=== PATIENT | female | born 1990 | race Caucasian/White ===

== ENCOUNTER 2024-01-02 07:23 | Emergency (ER) | payer BC ==
[2024-01-02] MEDS ORDERED: Magnesium Sulfate (4.06 MEQ/ML) 5 GM/10 ML SDV IV ONE (08:00)
[2024-01-02] MEDS: Ondansetron 4 MG/2 ML SDV IVPUSH ONE (08:13)
[2024-01-02] MEDS: Sodium Chloride 0.9% 1,000 ML IV ONE (08:13)
[2024-01-02] MEDS: Caffeine Citrated (ORAL SOLUTION) 60 MG/3 ML PO ONE (08:22)
== END 2024-01-02 09:43 | disposition home or self-care (01) ==
LOC: MW.ED 07:23
DX: G43.909 Migraine, unspecified, not intractable, without status migrainosus (principal); Z79.51 Long term (current) use of inhaled steroids; Z79.899 Other long term (current) drug therapy
CPT/HCPCS: 96365; 96375; 99283; J0706; J2405; J3475; J7030; 99284

== ENCOUNTER 2024-09-11 09:54 | Emergency (ER) | payer BC ==
[2024-09-11 10:22] LABS: BASOPHILS ABSOLUTE AUTO 0.04 K/uL (0.00-0.20); BASOPHILS PERCENT AUTO 0.3 % (0.0-1.0); EOSINOPHILS ABSOLUTE AUTO 0.05 K/uL (0.00-0.45); EOSINOPHILS PERCENT AUTO 0.3 % (0.0-6.0); HEMATOCRIT 44.9 % (37.0-47.0); HEMOGLOBIN 14.8 g/dL (12.0-16.0); IMMATURE GRAN ABSOLUTE AUTO 0.08 K/uL (0.00-0.05); IMMATURE GRAN PERCENT AUTO 0.5 % (0.0-0.4); LYMPHOCYTES PERCENT AUTO 13.3 % (24.0-44.0); MEAN CORPUSCULAR VOLUME 84.9 fL (83.0-99.0); MEAN PLATELET VOLUME 9.3 fL (9.4-12.3); MONOCYTES ABSOLUTE AUTO 0.84 K/uL (0.00-0.80); MONOCYTES PERCENT AUTO 5.3 % (0.0-8.0); NEUTROPHILS ABSOLUTE AUTO 12.65 K/uL (1.80-7.70); NEUTROPHILS PERCENT AUTO 80.3 % (41.0-71.0); PLATELET COUNT,PLT 290 K/uL (150-400); RED BLOOD CELL COUNT 5.29 M/uL (4.10-5.30); WHITE BLOOD CELL COUNT,WBC 15.76 K/uL (3.9-11.3)
[2024-09-11 10:47] LABS: A/G RATIO 1.1 (0.9-1.6); ALBUMIN 3.6 g/dL (3.4-5.0); BILIRUBIN TOTAL 0.3 mg/dL (0.2-1.0); CALCIUM 8.9 mg/dL (8.5-10.1); CARBON DIOXIDE,CO2 24.6 mmol/L (21.0-32.0); CREATININE 0.8 mg/dL (0.6-1.0); EST CRCL DRUG DOSING (CG) 102.78 mL/min; POTASSIUM,K 4.1 mmol/L (3.5-5.1); PROTEIN TOTAL,TP 6.9 g/dL (6.4-8.2)
[2024-09-11] MEDS: Ketorolac 30 MG/ML SDV IVPUSH STA (10:57)
[2024-09-11] MEDS: Ondansetron 4 MG/2 ML SDV IVPUSH STA (10:57)
[2024-09-11] MEDS: Magnesium Sulfate/Water Premix 2 GM in Premix Bag 1 BAG IV STA (10:57)
[2024-09-11] MEDS: Sodium Chloride 0.9% 1,000 ML IV STA (10:57)
[2024-09-11] MEDS: Magnesium Sulfate/Water Premix 50 ML ONE (11:08)
[2024-09-11] MEDS: Ketorolac 30 MG/ML SDV ONE (11:08)
[2024-09-11] MEDS: Ondansetron 4 MG/2 ML SDV ONE (11:08)
== END 2024-09-11 12:12 | disposition home or self-care (01) ==
LOC: MW.ED 09:54
DX: G43.909 Migraine, unspecified, not intractable, without status migrainosus (principal); J45.909 Unspecified asthma, uncomplicated; Z79.899 Other long term (current) drug therapy; Z75.8 Other problems related to medical facilities and other health care
CPT/HCPCS: 36415; 80053; 84703; 85025; 96365; 96375; 99283; J1100; J1885; J2405; J3475; J7030

== ENCOUNTER 2024-10-08 08:12 | Emergency (ER) | payer BC ==
[2024-10-08] MEDS: Sodium Chloride 0.9% 1,000 ML IV ONE (08:53)
[2024-10-08] MEDS: Ketorolac 30 MG/ML SDV IVPUSH ONE (08:54)
[2024-10-08] MEDS: Magnesium Sulf/Wat 2 GM/50 mL 2 GM in Premix Bag 1 BAG IV ONE (08:54)
[2024-10-08] MEDS: Metoclopramide 10 MG/2 ML SDV IVPUSH ONE (08:54)
== END 2024-10-08 10:58 | disposition home or self-care (01) ==
LOC: MW.ED 08:12
DX: G43.909 Migraine, unspecified, not intractable, without status migrainosus (principal); J45.909 Unspecified asthma, uncomplicated; Z88.8 Allergy status to other drugs, medicaments and biological substances; Z79.899 Other long term (current) drug therapy
CPT/HCPCS: 96365; 96366; 96375; 99283; J1100; J1885; J2765; J3475; J7030

== ENCOUNTER 2025-02-02 14:40 | Emergency (ER) | payer BC ==
[2025-02-02] MEDS ORDERED: droPERidol 2.5 MG/ML SDV IVPUSH PRN (14:55)
[2025-02-02 14:56] LABS: BASOPHILS ABSOLUTE AUTO 0.07 K/uL (0.00-0.20); BASOPHILS PERCENT AUTO 0.8 % (0.0-1.0); EOSINOPHILS ABSOLUTE AUTO 0.13 K/uL (0.00-0.45); EOSINOPHILS PERCENT AUTO 1.4 % (0.0-6.0); HEMATOCRIT 43.8 % (37.0-47.0); HEMOGLOBIN 14.7 g/dL (12.0-16.0); IMMATURE GRAN ABSOLUTE AUTO 0.05 K/uL (0.00-0.05); IMMATURE GRAN PERCENT AUTO 0.5 % (0.0-0.4); LYMPHOCYTES ABSOLUTE AUTO 2.03 K/uL (1.00-4.80); LYMPHOCYTES PERCENT AUTO 22.2 % (24.0-44.0); MEAN CORPUSCULAR HEMOGLOBIN 28.1 pg (28.0-32.0); MEAN CORPUSCULAR HGB CONC 33.6 g/dL (32.0-36.0); MEAN CORPUSCULAR VOLUME 83.6 fL (83.0-99.0); MEAN PLATELET VOLUME 8.7 fL (9.4-12.3); MONOCYTES PERCENT AUTO 5.5 % (0.0-8.0); NEUTROPHILS ABSOLUTE AUTO 6.35 K/uL (1.80-7.70); NEUTROPHILS PERCENT AUTO 69.6 % (41.0-71.0); PLATELET COUNT,PLT 322 K/uL (150-400); RED BLOOD CELL COUNT 5.24 M/uL (4.10-5.30); WHITE BLOOD CELL COUNT,WBC 9.13 K/uL (3.9-11.3)
[2025-02-02] MEDS: Acetaminophen 500 MG Tab PO ONE (14:58)
[2025-02-02] MEDS: Sodium Chloride 0.9% 1,000 ML IV ONE (14:59)
[2025-02-02 15:22] LABS: A/G RATIO 1.2 (0.9-1.6); ACETAMINOPHEN <2.0 ug/mL; ALANINE AMINOTRANSFERASE,ALT 21 IU/L (14-63); ALBUMIN 3.5 g/dL (3.4-5.0); ALKALINE PHOSPHATASE 80 U/L (46-116); ASPARTATE AMNIOTRANSFERASE,AST 12 IU/L (15-37); BILIRUBIN TOTAL 0.4 mg/dL (0.2-1.0); BLOOD UREA NITROGEN,BUN 8 mg/dL (7.0-18.0); CALCIUM 8.4 mg/dL (8.5-10.1); CARBON DIOXIDE,CO2 20.9 mmol/L (21.0-32.0); CHLORIDE,CL 105 mmol/L (98-107); CREATININE 1.2 mg/dL (0.6-1.0); EST CRCL DRUG DOSING (CG) 70.34 mL/min; ETHANOL BLOOD MEDICAL <3 mg/dL; GLUCOSE RANDOM 134 mg/dL (74-106); LIPASE 26 U/L (16-77); MAGNESIUM 2.2 mg/dL (1.8-2.4); POTASSIUM,K 3.5 mmol/L (3.5-5.1); PROTEIN TOTAL,TP 6.4 g/dL (6.4-8.2); SALICYLATE 5.2 mg/dL (0.0-20.0); SODIUM,NA 138 mmol/L (136-145)
[2025-02-02 15:29] LABS: ESTIMATED GFR 62 mL/min (>60)
[2025-02-02] MEDS: diphenhydrAMINE 50 MG/ML SDV IVPUSH ONE (15:36)
[2025-02-02] MEDS: Prochlorperazine 10 MG/2 ML SDV IVPUSH ONE (15:37)
[2025-02-02 15:48] LABS: APPEARANCE,URINE CLEAR; BILIRUBIN,URINE NEGATIVE (NEGATIVE); COLOR,URINE YELLOW; GLUCOSE,URINE NEGATIVE (NEGATIVE); KETONES,URINE NEGATIVE (NEGATIVE); LEUKOCYTE ESTERASE,URINE NEGATIVE (NEGATIVE); NITRITE,URINE NEGATIVE (NEGATIVE); OCCULT BLOOD,URINE NEGATIVE (NEGATIVE); PROTEIN,URINE NEGATIVE (NEGATIVE); UROBILINOGEN,URINE 0.2 EU/dL (<2.0)
[2025-02-02 15:58] LABS: AMPHETAMINES SCREEN, URINE PRESUMPTIVE POSITIVE (CUTOFF=500); BARBITURATE SCREEN,URINE NEGATIVE (CUTOFF=200); BENZODIAZEPINES SCREEN,URINE NEGATIVE (CUTOFF=150); BUPRENORPHINE SCREEN,URINE NEGATIVE (CUTOFF=10); METHADONE SCREEN, URINE NEGATIVE (CUTOFF=200); METHAMPHETAMINES SCREEN, URINE NEGATIVE (CUTOFF=500); OXYCODONE SCREEN,URINE NEGATIVE (CUT0FF=100); PCP SCREEN,URINE NEGATIVE (CUTOFF=25); THC SCREEN,URINE 20 NG/ML PRESUMPTIVE POSITIVE (CUTOFF=50)
[2025-02-02] MEDS: Ketorolac 30 MG/ML SDV IVPUSH ONE (16:05)
== END 2025-02-02 16:10 | disposition home or self-care (01) ==
LOC: MW.ED 14:40
DX: G43.909 Migraine, unspecified, not intractable, without status migrainosus (principal); J45.909 Unspecified asthma, uncomplicated; Z79.899 Other long term (current) drug therapy; Z88.8 Allergy status to other drugs, medicaments and biological substances
CPT/HCPCS: 36415; 70450; 80053; 80143; 80179; 80305; 80307; 81003; 83605; 83690; 83735; 84703; 85025; 93005; 96361; 96374; 96375; 99285; A9270; J0780; J1200; J1885; J7030; 93010; 99284

== ENCOUNTER 2025-03-05 04:45 | Emergency (ER) | payer BC, MEDICAID ==
[2025-03-05] MEDS ORDERED: Sodium Chloride 0.9% 10 ML Syringe FLUSH PRN (04:52)
[2025-03-05] MEDS ORDERED: Sodium Chloride 0.9% 2.5 ML Syringe FLUSH PRN (04:52)
[2025-03-05] MEDS: diphenhydrAMINE 50 MG/ML SDV IVPUSH ONE (05:03)
[2025-03-05] MEDS: Ketorolac 30 MG/ML SDV IVPUSH ONE (05:03)
[2025-03-05] MEDS: Magnesium Sulfate 2 GM/50 mL 2 GM in Premix Bag 1 BAG IV ONE (05:04)
== END 2025-03-05 05:41 | disposition home or self-care (01) ==
LOC: MW.ED 04:45
DX: G43.909 Migraine, unspecified, not intractable, without status migrainosus (principal); J45.909 Unspecified asthma, uncomplicated; Z79.899 Other long term (current) drug therapy; Z79.51 Long term (current) use of inhaled steroids; Z88.8 Allergy status to other drugs, medicaments and biological substances
CPT/HCPCS: 96365; 96375; 99283; J1200; J1885; J2765; J3475; J7030; 99282